=== PATIENT | male | born 1970 | race Caucasian/White ===

== ENCOUNTER 2017-02-22 05:05 | Outpatient (CLI) | payer OTHER | END 2017-02-22 05:06 | disposition EMS.NT | LOC: EMS 05:05 | PROVIDERS: ATTEND Surgery | DX: R68.89 Other general symptoms and signs (principal) ==

== ENCOUNTER 2020-09-13 12:14 | Emergency (ER) | payer OTHER ==
--- NOTE | 2020-09-13 13:02 | ED Physician Documentation ---
PD HPI FOCAL NEURO - Stated complaint Stated Complaint: DOUBLE VISION,DIZZY - Chief complaint Chief Complaint: Neuro - History obtained from History obtained from: Patient - Additional information Additional information: 50-year-old gentleman with a history of obesity, tobacco use, and wears corrective lenses, as well as history of severe sinus infection status post surgery 11 years ago for same. For the last 3 days he has had double vision, especially when looking straight or to the left. It is horizontal double vision. He has pressure behind the eyes that seems symmetric and gets dizzy if he turns his head too fast. He does not notice anything else other than some bloody mucus from his nose from last 3 days. There is no associated cough, fever. No headache other than the retro-orbital pressure. He says it is not painful. He is never had this before. Does not notice any weakness, numbness, tingling in the arms or legs or face. He has a particular concern about carbon monoxide poisoning as he is living in a hotel, and states there are a lot of trucks out idling outside of his window. Review of Systems Ten Systems: 10 systems reviewed and negative Constitutional: denies: Fever, Chills Eyes: denies: Loss of vision, Decreased vision, Photophobia, Discharge, Irritation Ears: denies: Loss of hearing, Ear pain Nose: reports: Rhinorrhea / runny nose, Congestion, Sinus pressure / pain PD PAST MEDICAL HISTORY - Present Medications Home Medications: Ambulatory Orders Medication Instructions Recorded Confirmed Amox/Clav 875/125 [Augmentin] 1 each PO Q12H #20 tablet 09/13/20 - Allergies Allergies/Adverse Reactions: Allergies Allergy/AdvReac Type Severity Reaction Status Date / Time prednisone Allergy Unknown Verified 09/13/20 12:21 PD ED PE NORMAL - Vitals Vital signs reviewed: Yes - General General: Alert and oriented X 3, No acute distress - HEENT HEENT: PERRL, Other (He has difficulty everting the right eye on leftward gaze consistent with a left cranial nerve palsy) - Neck Neck: Supple, no meningeal sign, No bony TTP - Back Back: No CVA TTP, No spinal TTP - Derm Derm: Normal color, Warm and dry - Extremities Extremities: No edema, No calf tenderness / cord - Neuro Neuro: Alert and oriented X 3, No motor deficit, No sensory deficit, Normal speech, Other (The remainder of his cranial nerves seem normal with the exception of I did not test one but he says his smell is gone.) Eye Opening: Spontaneous Motor: Obeys Commands Verbal: Oriented GCS Score: 15 - Psych Psych: Normal mood, Normal affect Results - Vitals Vitals: Vital Signs - 24 hr 09/13/20 12:23 Temperature 36.1 C L Heart Rate 79 Respiratory 20 Rate Blood Pressure 129/82 H O2 Saturation 96 Oxygen O2 Source Room air - Labs Labs: Laboratory Tests 09/13/20 09/13/20 09/13/20 13:09 13:09 13:09 WBC 10.3 RBC 5.15 Hgb 16.3 Hct 48.0 MCV 93.2 MCH 31.7 H MCHC 34.0 RDW 12.8 Plt Count 265 MPV 9.4 Neut # (Auto) 6.2 Lymph # (Auto) 2.9 [place] # (Auto) 0.8 Eos # (Auto) 0.3 Baso # (Auto) 0.1 Absolute Nucleated RBC 0.00 Nucleated RBC % 0.0 VBG Total Hgb 17.0 VBG Oxyhemoglobin 81 L VBG Carboxyhemoglobin 5.6 H VBG Methemoglobin 0.3 Sodium 138 Potassium 4.4 Chloride 101 Carbon Dioxide 23 Anion Gap 14.0 H BUN 13 Creatinine 0.8 Estimated GFR (MDRD) 102 Glucose 107 H Calcium 10.5 H - Rads (name of study) CT Head w/wo Radiology: EMP read contemporaneously (sinus dz, NAD) PD MEDICAL DECISION MAKING - ED course ED course: 50-year-old gentleman with 3-day history of what looks like a cranial nerve palsy. MRI is not available at our facility right now, no other findings of stroke. CT head with and without contrast was negative except for extensive sinus disease. He had a specific concern about carbon monoxide, but his levels consistent with being an active smoker. He is a [place] retiree [place] to follow-[place]. Will call them to try to get expedited follow-up given the circumstances for scheduling an MRI. We tried to call the [place] based expedite follow-up, but could not get through and no one is on-call. He was offered hospital hospital transfer for expedited work-up but prefers to try to do this as an outpatient. Departure - Departure Disposition: Home, Self Care Clinical Impression: CN palsy Qualifiers: Laterality: left Qualified Code(s): H49.22 - Sixth [abducent] nerve palsy, left eye Condition: Good Record reviewed to determine appropriate education?: Yes Instructions: Palsy Sixth Nerve About, Palsy Sixth Nerve Tx Prescriptions: Amox/Clav 875/125 [Augmentin] 1 each PO Q12H #20 tablet Comments: You were seen today for double vision, it looks like a left cranial nerve palsy. Your lab work is basically normal, white blood cell count 10.3. CT scan with and without contrast of the brain showing no acute abnormality except for the sinus disease. As discussed I do not think the sinus disease can completely explain the cranial nerve palsy and while it merits treatment, you do need to be seen by her primary care physician within a day or 2 for reevaluation and MRI of the brain. Return if worsening or if new symptoms develop.
[2020-09-13 13:14] LABS: BASOPHILS # (AUTO) 0.1 10^3/uL (0.0-0.1); BASOPHILS % (AUTO) 0.9 %; CARBOXYHEMOGLOBIN VENOUS 5.6 % (0-1.5); EOSINOPHILS # (AUTO) 0.3 10^3/uL (0.0-0.7); EOSINOPHILS % (AUTO) 3.2 %; HGB - HEMOGLOBIN 16.3 g/dL (14.0-18.0); LYMPHOCYTES # (AUTO) 2.9 10^3/uL (1.5-3.5); LYMPHOCYTES % (AUTO) 28.3 %; MEAN CORPUSCULAR HEMOGLOBIN 31.7 pg (27.0-31.0); MEAN CORPUSCULAR VOLUME 93.2 fL (80.0-94.0); MEAN PLATELET VOLUME 9.4 fL (7.4-11.4); METHEMOGLOBIN VENOUS 0.3 % (0-1.5); MONOCYTES # (AUTO) 0.8 10^3/uL (0.0-1.0); MONOCYTES % (AUTO) 7.4 %; NEUTROPHILS # (AUTO) 6.2 10^3/uL (1.5-6.6); PLT - PLATELET COUNT 265 10^3/uL (130-450); RED BLOOD COUNT 5.15 10^6/uL (4.70-6.10); RED CELL DISTRIBUTION WIDTH 12.8 % (12.0-15.0); WHITE BLOOD COUNT 10.3 x10^3/uL (4.8-10.8)
[2020-09-13 13:24] LABS: CALCIUM 10.5 mg/dL (8.5-10.3); CREATININE 0.8 mg/dL (0.6-1.2); POTASSIUM 4.4 mmol/L (3.5-5.0)
[2020-09-13] MEDS ORDERED: IOVERSOL 320 100 ML VIAL IVP ONE ×2 (13:27→18:04)
--- NOTE | 2020-09-13 15:21 | CT Report ---
PROCEDURE: HEAD W/WO INDICATIONS: new diplopia TECHNIQUE: 4.5 mm thick angled axial sections acquired from the foramen magnum to the vertex before and after th e administration of intravenous contrast. For radiation dose reduction, the following was used: aut omated exposure control, adjustment of mA and/or kV according to patient size. CONTRAST: IV CONTRAST: Optiray 320 ml: 100 PO CONTRAST: *NO PO CONTRAST COMPARISON: None FINDINGS: Image quality: Excellent. CSF Spaces: Basal cisterns are patent. No extra-axial fluid collections. Ventricles are normal in size and shape. Brain: No midline shift. No intracranial bleeds or masses. No abnormal intracranial enhancement. Smith-white interface appears normal. Skull and face: Calvarium and visualized facial bones appear intact, without suspicious lesions. Sinuses: There is prominent mucosal thickening seen within the right maxillary sinus, with moderate mucosal thickening within the left maxillary sinus. Prominent mucosal thickening is seen within the e thmoid air cells and the sphenoid sinuses. The frontal sinuses are poorly developed and demonstrate m oderate to prominent mucosal thickening. No significant abnormal fluid can be seen within the mastoid air cells or within the middle ear cavities. IMPRESSION: Unremarkable intracranial study, without masses or abnormal enhancement to explain the patient's pres enting history. If clinically appropriate, please consider a follow-up brain MRI (with and without contrast) for furt her evaluation (assuming that there is no contraindication). Prominent paranasal sinus disease noted. Reviewed by: Yo Judd MD on 09/13/2020 2:19 PM SHASHI Approved by: Yo Judd MD on 09/13/2020 2:19 PM SHASHI Station ID: [id number]
[2020-09-13 16:21] VITALS: BP 161/100
== END 2020-09-13 16:20 | disposition home or self-care (01) ==
LOC: ED 12:14
DX: H49.22 Sixth [abducent] nerve palsy, left eye (principal); J32.9 Chronic sinusitis, unspecified; F17.200 Nicotine dependence, unspecified, uncomplicated
CPT/HCPCS: 36415; 70470; 80048; 82375; 85025; 99283; 99284; Q9967

== ENCOUNTER 2020-09-27 13:17 | Outpatient (CLI) | payer OTHER ==
[2020-09-27] MEDS ORDERED: IOPAMIDOL-300 100 ML VIAL ONE (13:23)
[2020-09-27] MEDS ORDERED: IOPAMIDOL-300 100 ML VIAL IVP ONE (14:19)
--- NOTE | 2020-09-27 15:49 | CT Report ---
PROCEDURE: MAXILLOFACIAL W INDICATIONS: CELLULITIS OF ORBIT, CHRONIC PANSINUSITIS CONTRAST: IV CONTRAST: Isovue 300 ml: 100 PO CONTRAST: *NO PO CONTRAST TECHNIQUE: After the administration of intravenous contrast, 3.0 mm axial sections acquired from the mid-neck to the frontal sinuses, with coronal reformatting. For radiation dose reduction, the following was use d: automated exposure control, adjustment of mA and/or kV according to patient size. COMPARISON: Correlation is made with head CT, 09/13/2020. FINDINGS: Image quality: Excellent. Soft tissues: In this patient with this given history, scrutiny is given to the orbits. No significa nt periorbital abnormality can be seen. No intraorbital masses or abnormal enhancement can be seen. N o significant inflammatory changes are seen. The globes and the extraocular muscles demonstrate an un remarkable, symmetric appearance. No edema, masses, or fluid collections. No enlarged lymph nodes. No significant abnormal soft tissue enhancement can be seen. Vascular: Visualized vascular structures appear patent throughout. Bony vascular foramina and canal s appear normal. Bones: Facial bones appear intact, without fractures, erosions, or destruction. Visualized portions of the skull base and auditory canals also appear normal. Sinuses: The frontal sinuses are completely opacified. The ethmoid air cells are nearly completely o pacified. The sphenoid sinuses demonstrate moderate mucosal thickening, right worse than left. Modera te to prominent mucosal thickening seen within the maxillary sinuses, right worse than left. The osti omeatal complexes are not seen. Soft tissue can be seen occupying the expected location of the left o stiomeatal complex. Prominent soft tissue the appearance of polyps can be seen within the nasal cavit y. The middle turbinates and the nasal septum are partially eroded. IMPRESSION: Advanced paranasal sinus disease is seen, with an appearance most consistent with chronic polyposis. Please correlate with known patient history. No significant orbital abnormality can be seen. Reviewed by: Yo Judd MD on 09/27/2020 2:48 PM SHASHI Approved by: Yo Judd MD on 09/27/2020 2:48 PM SHASHI Station ID: [id number]
== END 2020-09-27 13:18 | disposition home or self-care (01) ==
LOC: DI 13:17
PROVIDERS: ATTEND Student in an Organized Health Care Education/Training Program
DX: J32.4 Chronic pansinusitis (principal); H05.019 Cellulitis of unspecified orbit
CPT/HCPCS: 70487; Q9967